=== PATIENT | female | born 1980 | race Caucasian/White ===

== ENCOUNTER 2020-09-12 12:41 | Emergency (ER) | payer OTHER, MEDICAID ==
[~2020-09-12] VITALS: Ht 162.6 cm; Wt 72.6 kg
[~2020-09-12 12:41] MED LIST: BACTRIM DS TAB1 EACH PO; CELEXA 20 MG TA20 M1; CLONAZEPAM; CLONAZEPAM 1 MG1 M1; CLONAZEPAM PO; MOBIC15 MG; MOBIC7.5 MG PO; NORCO 5-325 TA1 EACH PO; PERCOCET 5-3251 EACH; SERTRALINE HCL100 MG; VICODIN; XANAX 0.25 MG0.25 MG PO; XANAX 0.5 MG0.5 MG
[2020-09-12] MEDS ORDERED: FLEXERIL PO (14:43)
[2020-09-12] MEDS ORDERED: HYDROCODON-ACE1 EAC7 PO (14:43)
[2020-09-12 15:12] VITALS: BP 103/67
== END 2020-09-12 15:13 | disposition home or self-care (01) ==
LOC: M.ERS 12:41
DX: M79.602 Pain in left arm (principal); M25.532 Pain in left wrist; M79.632 Pain in left forearm; M19.90 Unspecified osteoarthritis, unspecified site; Z88.6 Allergy status to analgesic agent; Z98.890 Other specified postprocedural states; W23.0XXA Caught, crushed, jammed, or pinched between moving objects, initial encounter; Y93.89 Activity, other specified; Y92.89 Other specified places as the place of occurrence of the external cause; Y99.9 Unspecified external cause status

== ENCOUNTER 2020-10-04 15:13 | Emergency (ER) | payer OTHER, MEDICAID ==
[~2020-10-04] VITALS: Ht 162.6 cm; Wt 72.6 kg
[~2020-10-04 15:13] MED LIST changes: +FLEXERIL PO; +HYDROCODON-ACE1 EAC7 PO
[2020-10-04] MEDS ORDERED: PROZAC10 M1 PO (15:29)
[2020-10-04] MEDS ORDERED: NEURONTIN100 MG PO (15:29)
[2020-10-04] MEDS ORDERED: VISTARIL50 MG PO (15:30)
[2020-10-04] MEDS ORDERED: MEDROLDOSEPACK PO (17:20)
[2020-10-04] MEDS ORDERED: FLEXERIL PO (17:20)
[2020-10-04] MEDS ORDERED: APAP W/CODEINE1 TA2 PO (17:20)
[2020-10-04 17:32] VITALS: BP 105/66
== END 2020-10-04 17:33 | disposition home or self-care (01) ==
LOC: M.ERS 15:13
DX: R51.9 Headache, unspecified (principal); M54.2 Cervicalgia; M54.6 Pain in thoracic spine; M19.90 Unspecified osteoarthritis, unspecified site; Z88.6 Allergy status to analgesic agent; Z88.5 Allergy status to narcotic agent

== ENCOUNTER 2020-10-08 09:27 | Emergency (ER) | payer OTHER, MEDICAID ==
[~2020-10-08] VITALS: Ht 162.6 cm; Wt 72.6 kg
[~2020-10-08 09:27] MED LIST changes: +APAP W/CODEINE1 TA2 PO; +MEDROLDOSEPACK PO; +NEURONTIN100 MG PO; +PROZAC10 M1 PO; +VISTARIL50 MG PO
[2020-10-08] MEDS ORDERED: HYDROCODON-ACE1 EAC7 PO (10:47)
[2020-10-08] MEDS ORDERED: PREDNISONE 10 M10 M1 PO (10:47)
[2020-10-08 11:02] VITALS: BP 148/89
== END 2020-10-08 11:02 | disposition home or self-care (01) ==
LOC: M.ERS 09:27
DX: M79.645 Pain in left finger(s) (principal); L29.9 Pruritus, unspecified; T78.49XA Other allergy, initial encounter; M19.90 Unspecified osteoarthritis, unspecified site; Z88.6 Allergy status to analgesic agent; Z88.5 Allergy status to narcotic agent; X58.XXXA Exposure to other specified factors, initial encounter

== ENCOUNTER 2021-05-13 16:01 | Emergency (ER) | payer MEDICAID ==
[~2021-05-13] VITALS: Ht 162.6 cm; Wt 52.2 kg
[~2021-05-13 16:01] MED LIST changes: +PREDNISONE 10 M10 M1 PO
[2021-05-13] MEDS ORDERED: AMOXICILLIN 50500 MG PO (17:48)
[2021-05-13] MEDS ORDERED: IBUPROFEN 800800 M1 PO (17:48)
[2021-05-13 17:59] VITALS: BP 112/54
== END 2021-05-13 18:00 | disposition home or self-care (01) ==
LOC: M.ERS 16:01
DX: J02.0 Streptococcal pharyngitis (principal); M19.90 Unspecified osteoarthritis, unspecified site; F32.9 Major depressive disorder, single episode, unspecified; F41.9 Anxiety disorder, unspecified; Z98.890 Other specified postprocedural states; Z98.51 Tubal ligation status; Z88.6 Allergy status to analgesic agent; Z88.8 Allergy status to other drugs, medicaments and biological substances